=== PATIENT | male | born 1970 | race Caucasian/White ===

== ENCOUNTER 2022-04-01 20:34 | Inpatient (IN) | payer MEDICARE ==
[2022-04-01 22:40] VITALS: BMI 46.8
[2022-04-01] MEDS ORDERED: Acetaminophen 325 MG TAB PO PRN (22:45)
[2022-04-01] MEDS ORDERED: Ondansetron ODT 4 MG TAB SL PRN (22:45)
[2022-04-01] MEDS ORDERED: Ondansetron PF 4 MG/2 ML Vial IVP PRN (22:45)
[2022-04-01] MEDS ORDERED: Senokot S 8.6-50 MG TAB PO PRN (22:46)
[2022-04-01] MEDS ORDERED: Nitroglycerin 0.4 MG TAB (25 Tab Bottle) SL PRN (22:46)
[2022-04-01] MEDS ORDERED: hydrALAZINE 20 MG/ML VIAL SLOW IVP PRN (22:52)
[2022-04-01] MEDS ORDERED: Melatonin 3 MG TAB PO PRN (22:52)
[2022-04-01] MEDS ORDERED: Sodium Chloride 0.9% 1,000 ML IV SCH (23:00)
[2022-04-01] MEDS ORDERED: Pantoprazole 40 MG VIAL IVP SCH (23:00)
[2022-04-01] MEDS ORDERED: Enoxaparin Sodium 40 MG/0.4 ML SYRINGE SC SCH (23:00)
[2022-04-01] MEDS ORDERED: Bacitracin 1 PK TOP SCH (23:45)
[2022-04-02] MEDS: Nicotine 21 MG PATCH TD SCH ×2 (00:06→23:34)
[2022-04-02 00:18] LABS: Troponin I Less than 0.010 ng/mL (< 0.028)
[2022-04-02 04:48] LABS: #Eosinphils 0.3 thou/uL (0.0-0.7); #Lymphocytes 3.4 thou/uL (1.20-3.40); #Monocytes 0.4 thou/uL (0.11-0.59); #Neutrophils 3.2 thou/uL (1.40-6.50); %Basophils 0.4 % (0.0-1.0); %Eosinophils 4.7 % (0.0-10.0); %Lymphocytes 45.8 % (21.0-51.0); %Monocytes 5.9 % (0.0-10.0); %Neutrophils 43.1 % (42.0-75.0); Hemoglobin 17.3 g/dL (14.0-18.0); Mean Corpuscular HGB CONC 31.7 g/dL (32.0-36.0); Mean Corpuscular Volume 91.5 fL (78.0-98.0); Platelet Count 200 thou/uL (130-400); RBC Distribution Width 12.7 % (11.5-14.5); Red Blood Cell (RBC) Count 5.98 mill/uL (4.70-6.10); White Blood Cell (WBC) Count 7.3 thou/uL (4.8-10.8)
[2022-04-02 05:07] LABS: Troponin I Less than 0.010 ng/mL (< 0.028)
[2022-04-02 06:40] LABS: ALT (SGPT) 21 U/L (8-55); AST (SGOT) 18 U/L (5-34); Albumin 3.9 g/dL (3.5-5.0); Alkaline Phosphatase 42 U/L (40-110); Anion Gap 15 mmol/L (10-20); BUN (Urea Nitrogen) 23 mg/dL (8.9-20.6); Bilirubin, Total 0.5 mg/dL (0.2-1.2); Calc. Creatinine Clearance 255 mL/min (70-130); Calcium 9.1 mg/dL (7.8-10.44); Carbon Dioxide 20 mmol/L (22-29); Cardiac Risk 3.6 (Less than 4.5); Chloride 108 mmol/L (98-107); Cholesterol 123 mg/dl (< 200 Desired); Globulin 2.5 g/dL (2.4-3.5); Glucose 96 mg/dL (70-105); HDL Cholesterol 34 mg/dL (>60 Neg Risk); LDL Cholesterol, Calculated 70 mg/dL; Potassium 4.1 mmol/L (3.5-5.1); Protein, Total 6.4 g/dL (6.0-8.3); Sodium 139 mmol/L (136-145); Triglycerides 93 mg/dL (Less than 150)
[2022-04-02] MEDS: Bacitracin 1 PK TOP SCH ×3 (08:11→21:31)
[2022-04-02] MEDS ORDERED: Regadenoson 0.4 MG/5 ML SYRINGE ONE (08:51)
[2022-04-02] MEDS ORDERED: Pantoprazole 40 MG VIAL IVP SCH (09:00)
[2022-04-02] MEDS ORDERED: Lisinopril 20 MG TAB PO SCH (11:00)
[2022-04-02 11:46] LABS: SARS-CoV-2 PCR by NAA Not Detected (NotDetected)
[2022-04-02] MEDS ORDERED: Enoxaparin Sodium 40 MG/0.4 ML SYRINGE SC SCH (21:00)
[2022-04-02] MEDS: Pantoprazole 40 MG VIAL IVP SCH (21:31)
[2022-04-02] MEDS ORDERED: Sucralfate 1 GM TAB PO SCH (22:00)
[2022-04-03] MEDS: Pantoprazole 40 MG VIAL IVP SCH (08:03)
[2022-04-03] MEDS: Bacitracin 1 PK TOP SCH ×2 (08:14→14:41)
[2022-04-03] MEDS ORDERED: Senokot S 8.6-50 MG TAB PO PRN (08:15)
[2022-04-03] MEDS ORDERED: Lisinopril 20 MG TAB PO SCH (09:00)
[2022-04-03 11:33] VITALS: BP 147/81; TEMP 98.7
== END 2022-04-03 14:46 | disposition home or self-care (01) | DRG 392 ==
LOC: 2SW 22:17 → OBSVTOIN 04-02 19:01
PROVIDERS: ADMIT Student in an Organized Health Care Education/Training Program; ATTEND Internal Medicine
DX: R13.10 Dysphagia, unspecified (principal); Z68.42 Body mass index [BMI] 45.0-49.9, adult; I42.9 Cardiomyopathy, unspecified; Z20.822 Contact with and (suspected) exposure to COVID-19; R07.9 Chest pain, unspecified; I11.0 Hypertensive heart disease with heart failure; I50.9 Heart failure, unspecified; F17.210 Nicotine dependence, cigarettes, uncomplicated; E66.01 Morbid (severe) obesity due to excess calories; K20.90 Esophagitis, unspecified without bleeding; R00.1 Bradycardia, unspecified
CPT/HCPCS: 36415; 78452; 80053; 80061; 84443; 84484; 85025; 93017; 93306; 94760; A9500; C9113; J1650; J2785; J7050; U0003; U0005